=== PATIENT | female | born 1950 | race Caucasian/White ===

== ENCOUNTER 2017-12-05 18:38 | Emergency (ER) | payer MEDICARE, BC ==
[2017-12-05 19:42] VITALS: BP 151/83
--- NOTE | 2017-12-05 19:54 | EDM.PDOC ---
ED HPI GENERAL MEDICAL PROBLEM - General Chief Complaint: Lower Extremity Injury/Pain Stated Complaint: PAIN IN LEFT LEG Time Seen by Provider: 12/05/17 19:49 Source of Information: Reports: Patient History Limitations: Reports: No Limitations - History of Present Illness INITIAL COMMENTS - FREE TEXT/NARRATIVE: c/o few weeks h/o left leg pain. started with anterior thigh then moved down to lateral thigh. states not constant but episodic. then today had a sudden sharp pain in lateral then went away after a while. now really worried. Left Anterior Leg Pain Score (Numeric/FACES): 4 - Related Data Allergies Allergy/AdvReac Type Severity Reaction Status Date / Time bee pollen Allergy Swelling Verified 12/05/17 18:59 sulfamethoxazole Allergy Headache Verified 12/05/17 18:59 [From Bactrim] trimethoprim [From Bactrim] Allergy Headache Verified 12/05/17 18:59 Home Meds: Home Meds Amitriptyline [Elavil] 25 mg PO ASDIRECTED 03/18/13 [History] Omeprazole [priLOSEC OTC] 20 mg PO DAILY 03/18/13 [History] metFORMIN HCl [Metformin HCl ER] 500 mg PO BID 03/18/13 [History] Pravastatin Sodium [Pravastatin (Pravachol)] 80 mg PO BEDTIME 11/22/15 [History] Cholecalciferol (Vitamin D3) [Vitamin D3] 2,000 units PO DAILY 01/11/17 [History ] Levothyroxine 25 mcg PO DAILY 01/11/17 [History] Multivitamin [Multivitamins] 1 cap PO DAILY 01/11/17 [History] Diltiazem HCl [Diltiazem ER] 300 mg PO DAILY 01/12/17 [History] Apixaban [Eliquis] 5 mg PO BID 12/05/17 [History] Aspirin 81 mg PO DAILY 12/05/17 [History] Metoprolol Succinate 25 mg PO BID 12/05/17 [History] Past Medical History HEENT History: Reports: Impaired Vision Cardiovascular History: Reports: Afib, High Cholesterol, Hypertension Respiratory History: Reports: None Gastrointestinal History: Reports: GERD Genitourinary History: Reports: Renal Calculus, UTI, 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: Musculoskeletal History: Reports: Arthritis, Fibromyalgia, Osteoarthritis Neurological History: Reports: None Psychiatric History: Reports: None Endocrine/Metabolic History: Reports: Diabetes, Type II Hematologic History: Reports: None Immunologic History: Reports: None Oncologic (Cancer) History: Reports: Basal Cell Carcinoma Other Oncologic History: basal cell Dermatologic History: Reports: None - Infectious Disease History Infectious Disease History: Reports: Shingles - Past Surgical History HEENT Surgical History: Reports: Cataract Surgery GI Surgical History: Reports: Colonoscopy Social & Family History - Family History Family Medical History: Noncontributory Cardiac: Reports: Bypass, High Cholesterol, Hypertension, [place], Stent Other Cardiac Family History: mother had bypass and all her relatives had bypass. Father of [place] at age 69. Sister that is younger had stents. - Tobacco Use Smoking Status *Q: Unknown Ever Smoked Second Hand Smoke Exposure: No - Caffeine Use Caffeine Use: Reports: Soda - Recreational Drug Use Recreational Drug Use: No Review of Systems - Review of Systems Review Of Systems: ROS reveals no pertinent complaints other than HPI. ED EXAM, GENERAL - Physical Exam Exam: See Below Exam Limited By: No Limitations General Appearance: Alert, WD/WN, Anxious, Mild Distress Ears: Hearing Grossly Normal Throat/Mouth: Normal Voice, No Airway Compromise Head: Atraumatic Neck: Non-Tender, Full Range of Motion Respiratory/Chest: No Respiratory Distress Cardiovascular: Regular Rate, Rhythm GI/Abdominal: Soft, Non-Tender Extremities: Other (left knee same size as right, no gross D/D, NV wnl. gait limited to discomfort) Neurological: Alert, Oriented, Normal Cognition, No Motor/Sensory Deficits Psychiatric: Anxious Skin Exam: Warm, Dry, Normal Color Lymphatic: No Adenopathy Course - Vital Signs Last Recorded V/S: Last Vital Signs Temp 37.3 C 12/05/17 19:36 Pulse 68 12/05/17 19:36 Resp 20 12/05/17 19:36 BP 151/83 H 12/05/17 19:36 Pulse Ox 95 12/05/17 19:36 - Re-Assessments/Exams Free Text/Narrative Re-Assessment/Exam: 12/05/17 21:35 results discussed with pt. who states pain tends to come & go. Departure - Departure Time of Disposition: 21:35 Disposition: Home, Self-Care 01 Condition: Good Clinical Impression: Knee pain, left Qualifiers: Chronicity: acute Qualified Code(s): M25.562 - Pain in left knee - Discharge Information Instructions: Knee Pain, Adult, [id number] Forms: ED Department Discharge Additional Instructions: 1) rest and elevate leg as much as possible 2) notify orthopedist tomorrow 3) recheck if there is any or concern 4) try ice or heat to area.
== END 2017-12-05 21:42 | disposition home or self-care (01) ==
LOC: DL.ED 18:38
DX: M25.562 Pain in left knee (principal); I10 Essential (primary) hypertension; E11.9 Type 2 diabetes mellitus without complications; Z88.2 Allergy status to sulfonamides; Z88.8 Allergy status to other drugs, medicaments and biological substances; Z79.899 Other long term (current) drug therapy
CPT/HCPCS: 73562-LT; 99283

== ENCOUNTER 2019-07-26 01:50 | Emergency (ER) | payer MEDICARE, BC ==
[2019-07-26] MEDS ORDERED: Aspirin 81 MG Tab.Chew PO ONE (02:11)
[2019-07-26] MEDS ORDERED: Nitroglycerin 0.4 MG Tab.SL SL ONE (02:12)
--- NOTE | 2019-07-26 02:41 | EDM.PDOC ---
<Gregorio Carvajal Rodrigo - Last Filed: 07/26/19 05:45> ED HPI GENERAL MEDICAL PROBLEM - General Chief Complaint: General Stated Complaint: DOESN'T FEEL RIGHT Time Seen by Provider: 07/26/19 02:00 Source of Information: Reports: Patient History Limitations: Reports: No Limitations - History of Present Illness INITIAL COMMENTS - FREE TEXT/NARRATIVE: ED ambulatory with c/o intermittent chest tightness that she notices when falling asleep. Denies SOB, heaviness or pain while awake and doing activities. Does not feel SOB when lying flat. Mostly when sitting watching tv and starting to doze off. No prior [place]. Hx intermittent afib. Current chronic anticoag. Scheduled to see cardiology for routine follow up next week. No sweating nausea or radiation of pain. No change with movement. Sx present past couple of days. Prior documented hx esophagitis. Estimates 2 years since last cardiac echo, does not recall any problems or concerns with test Middle Chest Pain Score (Numeric/FACES): 4 - Related Data Allergies Allergy/AdvReac Type Severity Reaction Status Date / Time bee pollen Allergy Swelling Verified 07/26/19 02:13 sulfamethoxazole Allergy Headache Verified 07/26/19 02:13 [From Bactrim] trimethoprim [From Bactrim] Allergy Headache Verified 07/26/19 02:13 Home Meds: Home Meds Amitriptyline [Elavil] 25 mg PO ASDIRECTED 03/18/13 [History] Omeprazole [priLOSEC OTC] 20 mg PO DAILY 03/18/13 [History] metFORMIN HCl [Metformin HCl ER] 500 mg PO BID 03/18/13 [History] Pravastatin Sodium [Pravastatin (Pravachol)] 80 mg PO BEDTIME 11/22/15 [History] Cholecalciferol (Vitamin D3) [Vitamin D3] 2,000 units PO DAILY 01/11/17 [History ] Levothyroxine 25 mcg PO DAILY 01/11/17 [History] Multivitamin [Multivitamins] 1 cap PO DAILY 01/11/17 [History] dilTIAZem HCL [Diltiazem ER] 300 mg PO DAILY 01/12/17 [History] Apixaban [Eliquis] 5 mg PO BID 12/05/17 [History] Aspirin 81 mg PO DAILY 12/05/17 [History] Metoprolol Succinate 25 mg PO BID 12/05/17 [History] Past Medical History HEENT History: Reports: Impaired Vision Cardiovascular History: Reports: Afib, High Cholesterol, Hypertension Respiratory History: Reports: None Gastrointestinal History: Reports: GERD Genitourinary History: Reports: Renal Calculus, UTI, 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: Musculoskeletal History: Reports: Arthritis, Fibromyalgia, Osteoarthritis Neurological History: Reports: None Psychiatric History: Reports: None Endocrine/Metabolic History: Reports: Diabetes, Type II Hematologic History: Reports: None Immunologic History: Reports: None Oncologic (Cancer) History: Reports: Basal Cell Carcinoma Other Oncologic History: basal cell Dermatologic History: Reports: None - Infectious Disease History Infectious Disease History: Reports: Shingles - Past Surgical History HEENT Surgical History: Reports: Cataract Surgery GI Surgical History: Reports: Colonoscopy Social & Family History - Family History Family Medical History: Noncontributory Cardiac: Reports: Bypass, High Cholesterol, Hypertension, [place], Stent Other Cardiac Family History: mother had bypass and all her relatives had bypass. Father of [place] at age 69. Sister that is younger had stents. - Tobacco Use Smoking Status *Q: Never Smoker Second Hand Smoke Exposure: No - Caffeine Use Caffeine Use: Reports: Soda - Recreational Drug Use Recreational Drug Use: No ED ROS GENERAL - Review of Systems Review Of Systems: Comprehensive ROS is negative, except as noted in HPI. ED EXAM, GENERAL - Physical Exam Exam: See Below Exam Limited By: No Limitations General Appearance: Alert, No Apparent Distress, Obese Eye Exam: Bilateral Eye: EOMI Ears: Normal External Exam Nose: Normal Inspection Throat/Mouth: Normal Inspection Head: Atraumatic, Normocephalic Neck: Normal Inspection Respiratory/Chest: No Respiratory Distress, Lungs Clear, Normal Breath Sounds Cardiovascular: Normal Peripheral Pulses, Regular Rate, Rhythm, No Edema (trace) , No JVD, No Murmur GI/Abdominal: Normal Bowel Sounds, Non-Tender Back Exam: Normal Inspection Extremities: Normal Inspection, Normal Range of Motion Neurological: Alert, Oriented, Normal Cognition Psychiatric: Normal Affect Skin Exam: Warm, Dry, Intact, Normal Color Course - Vital Signs Last Recorded V/S: Last Vital Signs Temp 36.4 C 07/26/19 06:00 Pulse 77 07/26/19 06:00 Resp 16 07/26/19 06:00 BP 134/70 05/13/20 04:49 Pulse Ox 94 L 07/26/19 06:00 - Orders/Labs/Meds Orders: Active Orders 24 hr Category Date Time Status EKG Documentation Completion [RC] STAT Care 07/26/19 02:02 Active EKG Documentation Completion [RC] STAT Care 07/26/19 07:00 Active CXR [Chest 1V Frontal] [CR] Urgent Exams 07/26/19 02:15 Taken Labs: Laboratory Tests 07/26/19 07/26/19 07/26/19 Range/Units 02:26 02:26 02:26 WBC 9.6 (5.0-10.0) 10^3/uL RBC 4.59 (4.2-5.4) 10^6/uL Hgb 13.7 (12.0-16.0) g/dL Hct 40.5 (37.0-47.0) % MCV 88.2 (80-100) fL MCH 29.8 (27.0-34.0) pg MCHC 33.8 (33.0-35.0) g/dL Plt Count 221 (150-450) 10^3/uL Neut % (Auto) 59.3 (42.2-75.2) % Lymph % (Auto) 28.0 (20.5-50.1) % [place] % (Auto) 9.9 H (2-8) % Eos % (Auto) 2.5 (1.0-3.0) % Baso % (Auto) 0.3 (0.0-1.0) % PT 10.4 (9.0-12.0) SEC INR 1.1 (0.9-1.2) D-Dimer, Quantitative < 100 (0-400) ng/mL Sodium 140 (136-145) mmol/L Potassium 4.2 (3.5-5.1) mmol/L Chloride 102 (98-107) mmol/L Carbon Dioxide 28 (21-32) mmol/L Anion Gap 14.2 H (7-13) mEq/L BUN 18 (7-18) mg/dL Creatinine 0.93 (0.55-1.02) mg/dL Est Cr Clr Drug Dosing 47.91 mL/min Estimated GFR (MDRD) 59 BUN/Creatinine Ratio 19.4 (No establ ref range) Glucose 109 H (74-99) mg/dL Calcium 9.0 (8.5-10.1) mg/dL Magnesium 1.9 (1.8-2.4) mg/dL Total Bilirubin 0.3 (0.2-1.0) mg/dL AST 17 (15-37) U/L ALT 40 (14-59) U/L Alkaline Phosphatase 103 (46-116) U/L CK-MB (CK-2) (0.0-3.6) ng/mL Troponin I < 0.017 (0.000-0.056) ng/mL B-Natriuretic Peptide < 5 (0-100) pg/ml Total Protein 7.0 (6.4-8.2) g/dL Albumin 3.9 (3.4-5.0) g/dL Globulin 3.1 Albumin/Globulin Ratio 1.3 07/26/19 07/26/19 Range/Units 02:26 07:01 WBC (5.0-10.0) 10^3/uL RBC (4.2-5.4) 10^6/uL Hgb (12.0-16.0) g/dL Hct (37.0-47.0) % MCV (80-100) fL MCH (27.0-34.0) pg MCHC (33.0-35.0) g/dL Plt Count (150-450) 10^3/uL Neut % (Auto) (42.2-75.2) % Lymph % (Auto) (20.5-50.1) % [place] % (Auto) (2-8) % Eos % (Auto) (1.0-3.0) % Baso % (Auto) (0.0-1.0) % PT (9.0-12.0) SEC INR (0.9-1.2) D-Dimer, Quantitative (0-400) ng/mL Sodium (136-145) mmol/L Potassium (3.5-5.1) mmol/L Chloride (98-107) mmol/L Carbon Dioxide (21-32) mmol/L Anion Gap (7-13) mEq/L BUN (7-18) mg/dL Creatinine (0.55-1.02) mg/dL Est Cr Clr Drug Dosing mL/min Estimated GFR (MDRD) BUN/Creatinine Ratio (No establ ref range) Glucose (74-99) mg/dL Calcium (8.5-10.1) mg/dL Magnesium (1.8-2.4) mg/dL Total Bilirubin (0.2-1.0) mg/dL AST (15-37) U/L ALT (14-59) U/L Alkaline Phosphatase (46-116) U/L CK-MB (CK-2) 1.8 (0.0-3.6) ng/mL Troponin I < 0.017 (0.000-0.056) ng/mL B-Natriuretic Peptide (0-100) pg/ml Total Protein (6.4-8.2) g/dL Albumin (3.4-5.0) g/dL Globulin Albumin/Globulin Ratio Meds: Medications Discontinued Medications Generic Name Dose Route Start Last Admin Trade Name Freq PRN Reason Stop Dose Admin Al Hydroxide/Mg Hydroxide 30 ml 07/26/19 03:09 07/26/19 03:14 Mag-Al Plus PO 07/26/19 03:10 30 ml ONETIME ONE Administration Aspirin 324 mg 07/26/19 02:11 07/26/19 02:21 Aspirin PO 07/26/19 02:12 324 mg ONETIME ONE Administration Nitroglycerin 0.4 mg 07/26/19 02:12 07/26/19 02:26 Nitrostat SL 07/26/19 02:13 0.4 mg ONETIME ONE Administration - Radiology Interpretation Free Text/Narrative:: [facility] [place] [facility] Final Radiology Report Call: [phone] assistance Online chat: [email or web address] Name: JOSE KHAN Age: 69Years F Date: 07/26/2019 SSN: -- : [id number] Study: XR CHEST 1 VIEW FRONTAL Requesting Physician: GREGORIO CARVAJAL Images: 1 Addl Studies: Provided Clinical History: Contrast: Contrast Medium: Contrast Amount: Contrast Method: CONFIDENTIALITY STATEMENT This report is intended only for use by the referring physician, and only in accordance with law. If you received this in error, call [phone]. Page 1 of 1 PROCEDURE INFORMATION: Exam: XR Chest, 1 View Exam date and time: 07/26/2019 2:28 AM Age: 69 years old Clinical indication: Other: Chest pain TECHNIQUE: Imaging protocol: XR of the chest Views: 1 view. COMPARISON: CR Chest 1V Frontal 11/22/2015 4:22 AM FINDINGS: Limitations: Patient positioning limits the examination. Apical lordotic technique was utilized. Tubes, catheters and devices: Multiple cardiac leads and wires are seen projecting over the chest. Lungs: Unremarkable. No consolidation. Pleural space: Unremarkable. No pleural effusion. No pneumothorax. Heart/Mediastinum: Unremarkable. No cardiomegaly. Bones/joints: Unremarkable. IMPRESSION: No acute findings. Thank you for allowing us to participate in the care of your patient. Dictated and Authenticated by: Sampson Bowman MD 07/26/2019 2:53 AM Central Time ([place] & [place]) - Re-Assessments/Exams Free Text/Narrative Re-Assessment/Exam: 07/26/19 03:44 Vague c/o of discomfort relieved she "thinks" after nitro . RN reassessment states pain back pointing epigastric area, rates 1-2/ 10 maalox given, Initially statesdid not help but requested to rate discomfort stated she didn't have any. Labs unremarkable, negative troponin. Monitor NSR. Plan repeat trop 0700. 07/26/19 05:45 Care tx to [facility] with shift change. Repeat troponin and EKG pending at O700. Departure - Departure Disposition: Home, Self-Care 01 Clinical Impression: Nonspecific chest pain - Discharge Information Instructions: Nonspecific Chest Pain, Adult Forms: ED Department Discharge Care Plan Goals: The patient was advised of the examination, EKG, lab, x-ray, repeat EKG and repeat lab results during the visit. The patient reports no return of his chest pain during the visit in the ED. The patient was encouraged to continue to monitor for any additional symptoms. The patient was advised to take his medications for heartburn. If the patient has any additional symptoms or further concerns, the patient should either return to the emergency department or visit her primary care facility. Sepsis Event Note - Evaluation Sepsis Screening Result: No Definite Risk - Focused Exam Vital Signs: Vital Signs Temp Pulse Resp BP BP Pulse Ox 07/26/19 06:00 36.4 C 77 16 94 L 07/26/19 04:49 36.4 C 74 16 134/70 96 07/26/19 03:54 36.3 C 70 16 135/75 98 07/26/19 02:26 125/72 07/26/19 01:56 35.6 C L 75 19 136/98 H 100 Date Exam was Performed: 07/26/19 Time Exam was Performed: 05:45 <Steve Junior - Last Filed: 07/26/19 08:08> Departure - Departure Time of Disposition: 08:04 Condition: Good - Discharge Information *PRESCRIPTION DRUG MONITORING PROGRAM REVIEWED*: Not Applicable *COPY OF PRESCRIPTION DRUG MONITORING REPORT IN PATIENT NAZ: Not Applicable Sepsis Event Note - Focused Exam Date Exam was Performed: 07/26/19 Time Exam was Performed: 08:04
[2019-07-26 02:57] LABS: ANION GAP 14.2 mEq/L (7-13); CHLORIDE,CL 102 mmol/L (98-107); SODIUM,NA 140 mmol/L (136-145)
[2019-07-26] MEDS ORDERED: Aluminum Hydroxide/Magnesium Hydroxide/Simethicone Susp 30 ML Cup PO ONE (03:09)
[2019-07-26 04:49] VITALS: BP 134/70
[2019-07-26 06:00] VITALS: PULSE 77
== END 2019-07-26 09:00 | disposition home or self-care (01) ==
LOC: DL.ED 01:50
DX: R07.89 Other chest pain (principal); I48.91 Unspecified atrial fibrillation; Z91.030 Bee allergy status; Z88.2 Allergy status to sulfonamides; E78.00 Pure hypercholesterolemia, unspecified; I10 Essential (primary) hypertension; K21.9 Gastro-esophageal reflux disease without esophagitis; M19.90 Unspecified osteoarthritis, unspecified site; Z79.82 Long term (current) use of aspirin; Z79.01 Long term (current) use of anticoagulants; Z79.84 Long term (current) use of oral hypoglycemic drugs; Z79.899 Other long term (current) drug therapy
CPT/HCPCS: 36415; 71045; 80053; 82553; 83735; 83880; 84484; 85025; 85379; 85610; 93005; 99285; A9270; 99284

== ENCOUNTER 2022-01-09 05:25 | Day surgery (SDC) | payer MEDICARE, BC ==
[2022-01-09] MEDS ORDERED: Midazolam 1 MG/ML 2 ML SDV IV ONE ×3 (05:26→06:46)
[2022-01-09] MEDS ORDERED: fentaNYL 100 MCG/2 ML SDV IV ONE ×3 (05:26→06:44)
[2022-01-09] MEDS ORDERED: Dextrose 5%-0.45% NaCl 1,000 ML IV SCH (05:50)
[2022-01-09] MEDS ORDERED: Midazolam 1 MG/ML 2 ML SDV ONE (06:10)
[2022-01-09] MEDS ORDERED: fentaNYL 100 MCG/2 ML SDV ONE (06:10)
[2022-01-09 12:17] VITALS: BP 121/72; PULSE 61
== END 2022-01-09 08:55 | disposition home or self-care (01) ==
LOC: DL.ENDO 05:25
PROVIDERS: ATTEND Internal Medicine Gastroenterology
DX: K31.7 Polyp of stomach and duodenum (principal); E66.09 Other obesity due to excess calories; E78.5 Hyperlipidemia, unspecified; E11.9 Type 2 diabetes mellitus without complications; E03.9 Hypothyroidism, unspecified; I25.10 Atherosclerotic heart disease of native coronary artery without angina pectoris; K21.9 Gastro-esophageal reflux disease without esophagitis; G47.33 Obstructive sleep apnea (adult) (pediatric); Z88.2 Allergy status to sulfonamides; Z88.8 Allergy status to other drugs, medicaments and biological substances; Z68.37 Body mass index [BMI] 37.0-37.9, adult; D35.00 Benign neoplasm of unspecified adrenal gland
CPT/HCPCS: 43239; 87077; J2250; J3010; J7042

== ENCOUNTER 2024-12-13 20:42 | Emergency (ER) | payer OTHER, MEDICARE, BC ==
[2024-12-13] MEDS ORDERED: fentaNYL 100 MCG/2 ML SDV ONE (20:49)
[2024-12-13 21:01] LABS: PLATELET COUNT,PLT 262 10^3/uL (150-450); RED BLOOD CELL COUNT 4.56 10^6/uL (4.2-5.4); WHITE BLOOD CELL COUNT,WBC 17.4 10^3/uL (5.0-10.0)
[2024-12-13 21:03] LABS: BASOPHILS PERCENT AUTO 0.3 % (0.0-1.0); EOSINOPHILS PERCENT AUTO 1.2 % (1.0-3.0); LYMPHOCYTES PERCENT AUTO 18.5 % (20.5-50.1); MONOCYTES PERCENT AUTO 7.1 % (2-8); NEUTROPHILS PERCENT AUTO 72.9 % (42.2-75.2)
[2024-12-13 21:17] LABS: INR 1.0 (0.9-1.2); PTT,PARTIAL THROMBOPLSTIN TIME 22.3 SEC (22.0-34.0)
[2024-12-13 21:20] LABS: A/G RATIO 1.1; ALANINE AMINOTRANSFERASE,ALT 117 U/L (14-59); ASPARTATE AMNIOTRANSFERASE,AST 100 U/L (15-37); BILIRUBIN TOTAL 0.5 mg/dL (0.2-1.0); BLOOD UREA NITROGEN,BUN 19 mg/dL (7-18); CARBON DIOXIDE,CO2 23 mmol/L (21-32); CHLORIDE,CL 103 mmol/L (98-107); CREATINE KINASE,CK 263 U/L (16-191); CREATININE 1.03 mg/dL (0.55-1.02); GLUCOSE RANDOM 191 mg/dL (70-99); POTASSIUM,K 4.7 mmol/L (3.5-5.1); PROTEIN TOTAL,TP 7.1 g/dL (6.4-8.2); SODIUM,NA 136 mmol/L (136-145)
[2024-12-13 21:23] LABS: ESTIMATED GFR 56 mL/min (>=60); ETHANOL BLOOD MEDICAL < 3 mg/dL (0)
[2024-12-13 21:24] LABS: LACTIC ACID 4.2 mmol/L (0.4-2.0)
[2024-12-13 21:27] LABS: B-TYPE NATRIURETIC PEPTIDE,BNP 24 pg/ml (0-100)
[2024-12-13 21:34] LABS: LYMPHOCYTES PERCENT MAN 19 % (20-50); MONOCYTES PERCENT MAN 6 % (2-8); SEG NEUTROPHILS PERCENT MAN 75 % (42-75)
[2024-12-13] MEDS ORDERED: Ondansetron 4 MG/2 ML SDV IVPUSH ONE (21:41)
[2024-12-13] MEDS ORDERED: Ondansetron 4 MG/2 ML SDV ONE (21:41)
[2024-12-13] MEDS ORDERED: Propofol 200 MG/20 ML SDV IVPUSH ONE (21:56)
[2024-12-13] MEDS: Iopamidol 612 MG/ML 100 ML Bottle IVPUSH ONE (23:51)
== END 2024-12-13 23:10 ==
LOC: DL.ED 20:42
DX: S92.001B Unspecified fracture of right calcaneus, initial encounter for open fracture (principal); S92.311A Displaced fracture of first metatarsal bone, right foot, initial encounter for closed fracture; S92.321A Displaced fracture of second metatarsal bone, right foot, initial encounter for closed fracture; S92.331A Displaced fracture of third metatarsal bone, right foot, initial encounter for closed fracture; S92.341A Displaced fracture of fourth metatarsal bone, right foot, initial encounter for closed fracture; S92.351A Displaced fracture of fifth metatarsal bone, right foot, initial encounter for closed fracture; S22.41XA Multiple fractures of ribs, right side, initial encounter for closed fracture; S22.21XA Fracture of manubrium, initial encounter for closed fracture; S32.011A Stable burst fracture of first lumbar vertebra, initial encounter for closed fracture; I48.91 Unspecified atrial fibrillation; I10 Essential (primary) hypertension; E78.00 Pure hypercholesterolemia, unspecified; K21.9 Gastro-esophageal reflux disease without esophagitis; E11.9 Type 2 diabetes mellitus without complications; E03.9 Hypothyroidism, unspecified; Z86.16 Personal history of COVID-19; Z88.8 Allergy status to other drugs, medicaments and biological substances; Z91.030 Bee allergy status; Z79.84 Long term (current) use of oral hypoglycemic drugs; Z79.01 Long term (current) use of anticoagulants; Z79.82 Long term (current) use of aspirin; Z79.890 Hormone replacement therapy; Z79.899 Other long term (current) drug therapy; V89.2XXA Person injured in unspecified motor-vehicle accident, traffic, initial encounter
CPT/HCPCS: 28405; 36415; 70450; 71045; 71260; 72125; 72170; 73590; 73600; 74177; 80053; 80307; 82550; 83605; 83690; 83880; 84484; 85025; 85610; 85730; 93005; 93010; 96361; 96374; 96375; 99285; 99291; Q9967